=== PATIENT | female | born 1990 | race Caucasian/White ===

== ENCOUNTER → 2016-12-24 | Outpatient (CLI) | payer OTHER | LOC: BHSO 12:46 | DX: F31.73 Bipolar disorder, in partial remission, most recent episode manic (principal) | CPT/HCPCS: 90791-AI ==

== ENCOUNTER → 2017-02-04 | Outpatient (CLI) | payer OTHER | LOC: BHSO 15:27 | DX: F31.73 Bipolar disorder, in partial remission, most recent episode manic (principal) ==

== ENCOUNTER → 2017-04-01 | Outpatient (CLI) | payer OTHER | LOC: BHSO 15:31 | DX: F31.73 Bipolar disorder, in partial remission, most recent episode manic (principal) ==

== ENCOUNTER → 2017-06-16 | Outpatient (CLI) | payer OTHER | LOC: BHSO 08:59 | DX: F41.1 Generalized anxiety disorder (principal) ==

== ENCOUNTER → 2017-07-14 | Outpatient (CLI) | payer OTHER | LOC: BHSO 13:16 | DX: F31.73 Bipolar disorder, in partial remission, most recent episode manic (principal) ==

== ENCOUNTER → 2017-09-14 | Outpatient (CLI) | payer OTHER | LOC: BHSO 08:57 | DX: F31.81 Bipolar II disorder (principal) | CPT/HCPCS: G0463 ==

== ENCOUNTER → 2017-11-04 | Outpatient (CLI) | payer OTHER | LOC: BHSO 11:40 | DX: F31.81 Bipolar II disorder (principal) | CPT/HCPCS: G0463 ==

== ENCOUNTER → 2018-01-05 | Outpatient (CLI) | payer OTHER | LOC: BHSO 11:43 | DX: F31.81 Bipolar II disorder (principal) | CPT/HCPCS: G0463 ==